=== PATIENT | female | born 1965 | race Caucasian/White ===

== ENCOUNTER 2018-06-28 23:10 | Emergency (ER) | payer SELFPAY ==
[~2018-06-28] VITALS: Wt 91.0 kg
[~2018-06-28 23:10] MED LIST: ASPI325T30 PO; HYDR-4011 PO; IBUP-1542 PO; PRED50TA PO
[2018-06-28 23:25] VITALS: BP 119/74; PULSE 82; RESP 20
== END 2018-06-29 00:51 | disposition left against medical advice (07) ==
LOC: E/R 23:10
DX: Z53.21 Procedure and treatment not carried out due to patient leaving prior to being seen by health care provider (principal)

== ENCOUNTER 2018-09-20 05:49 | Emergency (ER) | payer OTHER ==
[~2018-09-20] VITALS: Ht 167.6 cm; Wt 88.4 kg
[~2018-09-20 05:49] MED LIST changes: +DICY10CA40 PO; +IBUP800T48 PO; +ONDA4TAB14 PO
[2018-09-20 05:55] VITALS: Ht 167.6 cm; Wt 88.4 kg
[2018-09-20] MEDS ORDERED: morphine 4 MG/ML VIAL IV STA (06:53)
[2018-09-20] MEDS ORDERED: SOD CHLORIDE 0.9% 1,000 ML IV STA ×2 (06:53→10:21)
[2018-09-20] MEDS ORDERED: KETOROLAC 30 MG INJ IV STA (06:53)
[2018-09-20] MEDS ORDERED: ONDANSETRON 4 MG INJ IV STA ×2 (06:53→10:21)
--- NOTE | 2018-09-20 06:58 | ERD ---
ER Documentation Chief Complaint Chief Complaint C/O ABDOMINAL CRAMPING W/ VOMITING AND DIARRHEA AND DIZZINESS X1.5 HRS HPI This is a 53-year-old male that presents to the emergency department complaining of a sudden onset of severe abdominal cramping that occurred roughly an hour and half prior to arrival. She stated that last oral intake was roughly 10 hours prior to arrival which was 2 slices of pepperoni pizza. The pain awoke her. She stated she attempted to go to the bathroom and had to have a bowel movement. She stated she had a loose bowel movement. The cramping had subsided but then she had an episode of nonbloody nonbilious emesis. Roughly 30 minutes later the abdominal cramping returned. She had one further episode of nonbloody nonbilious emesis and therefore came to the emergency department to be further evaluated. She denies any fever shaking or chills. She felt lightheaded and dizzy but denied a headache. There is no syncope or near syncope episode. She denies any hemoptysis hematemesis or melanotic stools. She did not take any analgesic medication. Her past surgical history includes fibroid removal. ROS All systems reviewed and are negative except as per history of present illness. Medications Home Meds Active Scripts Prednisone* (Prednisone*) 50 Mg Tablet, 50 MG PO DAILY, #5 TAB Prov:VENKATA WHITLEY NP 11/03/15 Ibuprofen* (Motrin*) 600 Mg Tab, 600 MG PO Q6H PRN for PAIN AND OR ELEVATED TEMP, #30 TAB Prov:VENKATA WHITLEY NP 11/03/15 Hydrocodone/Acetaminophen ([place] 5-325 Tablet) 1 Each Tablet, 1 TAB PO Q6H PRN for PAIN, #20 TAB Prov:VENKATA WHITLEY NP 11/03/15 Reported Medications Aspirin* (Aspirin*) Unknown Strength Tablet, PO QID PRN for PAIN, TAB 11/03/15 Allergies Allergies: Coded Allergies: No Known Allergy (Unverified , 11/03/15) PMhx/Soc History of Surgery: Yes (BACK X2, TUBAL LIGATION, NECK (EXPLORATORY)) Anesthesia Reaction: No Hx Neurological Disorder: No Hx Respiratory Disorders: No Hx Cardiac Disorders: No Hx Psychiatric Problems: No Hx Miscellaneous Medical Probl: Yes (LUPUS) Hx Alcohol Use: No Hx Substance Use: No Hx Tobacco Use: No Smoking Status: Never smoker Physical Exam Vitals Vital Signs Date Temp Pulse Resp B/P (MAP) Pulse Ox O2 O2 Flow FiO2 Time Delivery Rate 09/20/18 80 20 117/76 98 Room Air 09:00 (90) 09/20/18 72 22 122/76 98 Room Air 07:05 (91) 09/20/18 99.2 84 20 132/77 100 05:55 (95) Physical Exam Constitutional:Well-developed. Well-nourished. Patient appeared to be in discomfort secondary to pain HEENT:Normocephalic. Atraumatic.Pupils were equal round reactive to light. Dry mucous membranes.No tonsillar exudates. Neck: No nuchal rigidity. No lymphadenopathy. No posterior cervical spine tenderness or step-offs. Respiratory: Not using accessory muscles of respiration.Lungs were clear to auscultation bilaterally. No rhonchi. No rales. No wheezing. Cardiovascular: Regular rate regular rhythm.No murmurs. No rubs were appreciate d.S1, S2 normal. Distal pulses are palpable 2+ bilaterally. GI: Abdomen was soft.. Mild diffuse abdominal tenderness. Non Distended. No pulsatile abdominal masses or bruits. No rebound. No guarding. Bowel sounds were hyperactive Muscle skeletal: Full range of motion of both the upper and lower extremities bilaterally.Normal muscle tone.No assymetrical calf tenderness or swelling. Skin: No petechia, no purpura. No lesions on the palms or the soles of the feet. No maculopapular rash. NEURO: Patient was alert, awake, orientated x3.No facial droop. Gait observed and normal with no ataxia.Speech had regular rate and rhythm. No focal neurological deficits. Result Diagram: 09/20/18 0709/20/18 0703 Results 24 hrs Laboratory Tests Test 09/20/18 07:03 White Blood Count 16.2 10^3/ul Red Blood Count 4.80 10^6/ul Hemoglobin 13.2 g/dl Hematocrit 40.3 % Mean Corpuscular Volume 84.0 fl Mean Corpuscular Hemoglobin 27.5 pg Mean Corpuscular Hemoglobin Concent 32.8 g/dl Red Cell Distribution Width 13.0 % Platelet Count 253 10^3/UL Mean Platelet Volume 10.3 fl Immature Granulocytes % 0.600 % Neutrophils % 95.1 % Lymphocytes % 2.8 % Monocytes % 1.2 % Eosinophils % 0.1 % Basophils % 0.2 % Nucleated Red Blood Cells % 0.0 /100WBC Immature Granulocytes # 0.090 10^3/ul Neutrophils # 15.4 10^3/ul Lymphocytes # 0.5 10^3/ul Monocytes # 0.2 10^3/ul Eosinophils # 0.0 10^3/ul Basophils # 0.0 10^3/ul Nucleated Red Blood Cells # 0.0 10^3/ul Prothrombin Time 12.4 Sec Prothrombin Time Ratio 1.0 INR International Normalized Ratio 0.91 Activated Partial Thromboplast Time 27.3 Sec Sodium Level 143 mmol/L Potassium Level 3.9 mmol/L Chloride Level 109 mmol/L Carbon Dioxide Level 22 mmol/L Anion Gap 12 Blood Urea Nitrogen 15 mg/dl Creatinine 0.70 mg/dl Est Glomerular Filtrat Rate mL/min > 60 mL/min Glucose Level 118 mg/dl Calcium Level 9.5 mg/dl Total Bilirubin 1.0 mg/dl Direct Bilirubin 0.00 mg/dl Indirect Bilirubin 1.0 mg/dl Aspartate Amino Transf (AST/SGOT) 37 IU/L Alanine Aminotransferase (ALT/SGPT) 61 IU/L Alkaline Phosphatase 96 IU/L Troponin I < 0.012 ng/ml Total Protein 7.0 g/dl Albumin 4.4 g/dl Globulin 2.60 g/dl Albumin/Globulin Ratio 1.69 Amylase Level 97 U/L Lipase 68 U/L Current Medications Medications Dose Sig/Evan Start Time Status Last (Trade) Ordered Route PRN Stop Time Admin Dose Reason Admin Sodium 1,000 ml @ Q1H STAT 09/20/18 DC 09/20/18 Chloride 1,000 mls/hr IV 06:53 09/20/18 07:17 07:52 Morphine 4 mg ONCE STAT 09/20/18 DC 09/20/18 Sulfate IV 06:53 09/20/18 07:16 (morphine) 06:56 Ondansetron 4 mg ONCE STAT 09/20/18 DC 09/20/18 HCl (Zofran IV 06:53 09/20/18 07:16 Inj) 06:56 Ketorolac 30 mg ONCE STAT 09/20/18 DC Tromethamine IV 06:53 09/20/18 (Toradol) 06:56 Dicyclomine 20 mg ONCE ONCE 09/20/18 DC 09/20/18 HCl PO 07:00 09/20/18 07:16 (Bentyl) 07:01 Sodium 1,000 ml @ Q1H STAT 09/20/18 Chloride 1,000 mls/hr IV 10:21 09/20/18 11:20 Ondansetron 4 mg ONCE STAT 09/20/18 DC HCl (Zofran IV 10:21 09/20/18 Inj) 10:22 Dicyclomine 10 mg ONCE ONCE 09/20/18 HCl PO 10:30 09/20/18 (Bentyl) 10:31 Procedures/MDM This patient presented to the emergency department with abdominal pain and was seen and evaluated by myself. My differential diagnosis included but was not limited to abdominal aortic aneurysm, appendicitis, pancreatitis, perforated peptic ulcer, perforated viscus, Boerhaaves syndrome or visceral pain such as diverticulitis, DKA, esophagitis, hepatitis or bowel obstruction. The patient was placed on a bus driver/monitor, continuous pulse oximetry, and IV access was established by nursing staff. The patient was given intravenous fluids antiemetics opiates and anti-inflammatories. Her pain had improved. She was also given Bentyl for the diarrhea and cramping. The patient had leukocytosis with a left shift however I felt this was secondary to an enteritis. The patient's abdomen was benign. I obtained a 12-lead EKG tracing to rule for atypical myocardial infarction. 12 Lead EKG tracing ordered and reviewed by myself showed: Normal sinus rhythm of 85 bpm and no arrhythmia. AK interval normal. QRS duration normal. No ST segment elevation No ST segment depression. No changes consistent with acute ischemia. Observation Note: Time: 5 hours Family Hx: No Hypertension Evaluation: Multiple exams showed improving symptoms and no evidence of worsening of her symptoms. She was able to tolerate oral intake. She had multiple repeat abdominal examinations all of which were benign with no peritoneal signs. I felt she was safe to be discharged home at this time. The patient was discharged home in fair condition. They were instructed to return to the emergency department at any time if there was any worsening of their condition. The patient stated they would follow up with their PCP in the next 24-48 hours to initiate a suitable medication regimen under the care of their PCP as well as to allow their PCP to monitor any drug reactions. The patient was discharged home with prescriptions after they gave informed consent to the new medication. They were also fully informed by myself on the adverse effects and adverse drug interactions in order to provide adequate safeguards to prevent possible adverse reactions to medications. Departure Diagnosis: Primary Impression: Nausea vomiting and diarrhea Condition: CLINT Lee MD Sep 20, 2018 06:58
[2018-09-20] MEDS ORDERED: DICYCLOMINE 10 MG CAP PO ONE ×2 (07:00→10:30)
[2018-09-20 11:51] VITALS: BP 117/76; PULSE 76; RESP 20
== END 2018-09-20 11:52 | disposition home or self-care (01) ==
LOC: E/R 05:49
DX: R11.2 Nausea with vomiting, unspecified (principal); R19.7 Diarrhea, unspecified; Z79.82 Long term (current) use of aspirin
CPT/HCPCS: 36415; 80053; 82150; 83690; 84484; 85025; 85610; 85730; 93005; 96374; 96375; 96376; 99284; J2270; J2405; J7030